=== PATIENT | male | born 1990 | race Two or more races ===

== ENCOUNTER 2024-10-03 18:06 | Emergency (ER) | payer OTHER ==
[~2024-10-03] VITALS: Ht 177.8 cm; Wt 56.7 kg
[2024-10-03 21:12] LABS: HEMATOCRIT 26.3 % (39.0-48.0); MEAN CELL VOLUME 92.8 fL (80.0-100.00); MEAN CORPUSCULAR HGB CONC 33.5 g/dl (32.0-36.0); PLATELET COUNT 213 K/uL (150-450); RED BLOOD COUNT 2.83 M/uL (4.00-6.00); RED CELL DISTRIBUTION WIDTH 16.3 % (11.5-14.5)
[2024-10-03 21:17] LABS: HEMOGLOBIN 8.8 g/dL (13-16.00)
[2024-10-03 21:21] LABS: URINE APPEARANCE Cloudy; URINE BILIRRUBIN Negative (NEGATIVE); URINE BLOOD Negative; URINE COLOR Yellow; URINE GLUCOSE Negative (NEGATIVE); URINE KETONE Negative (NEGATIVE); URINE LEUKOCYTE Negative; URINE NITRATE Negative; URINE PROTEIN Negative (NEGATIVE); URINE UROBILINOGEN 0.2 E.U./dl
[2024-10-03 21:24] LABS: URINE EPITHELIAL CELLS 1.4 uL (0.0-38.8); URINE RBC 2.3 uL (0.0-20.8); URINE WBC 11.3 uL (0.0-23.2)
[2024-10-03 21:36] LABS: INR 1.03; PARTIAL THROMBOPLASTIN TIME 23.2 SECONDS (22.0-34.0); PROTHROMBIN TIME 11.2 SECONDS (9.0-11.5)
[2024-10-03 21:42] LABS: ALBUMIN 3.1 gm/dL (3.4-5.0); BILIRUBIN TOTAL 0.28 mg/dL (0.3-1.2); CALCIUM 8.6 mg/dL (8.5-10.1); CREATININE SERUM 0.77 mg/dL (0.70-1.30); GFR 114.97; GLOBULINA 3.5 G/DL (2.4-3.5); POTASSIUM 4.02 mEq/L (3.5-5.1); TOTAL PROTEIN 6.6 gm/dL (6.4-8.2)
[2024-10-03] MEDS ORDERED: BUTALB/ACETAMINOPHEN/CAFFEINE 1 TAB TABLET PO ONE ×2 (21:55→22:00)
[2024-10-03 22:13] LABS: URINE BACTERIA 2.4 uL (0.0-1933)
[2024-10-03] MEDS ORDERED: FUROsemide 20 MG TABLET PO ONE ×2 (22:20→22:30)
[2024-10-04 02:20] LABS: COCAINE NEGATIVE (NEGATIVE); METHADONE NEGATIVE (NEGATIVE); OPIATES NEGATIVE (NEGATIVE); THC ( Cannabinoids) NEGATIVE (NEGATIVE)
== END 2024-10-04 04:46 | disposition home or self-care (01) ==
LOC: ER 18:07
PROVIDERS: General Practice
DX: R60.9 Edema, unspecified (principal); Z91.011 Allergy to milk products; Z91.048 Other nonmedicinal substance allergy status
CPT/HCPCS: 36415; 71046; 74177; 76870; 93005; Q9965